=== PATIENT | female | born 1990 | race Two or more races ===

== ENCOUNTER 2017-07-06 08:48 | Emergency (ER) | payer MEDICAID ==
[2017-07-06 09:08] VITALS: TEMP 97.9; O2SAT 99
--- NOTE | 2017-07-06 09:10 | ED PDOC ---
HPI: General Adult Time Seen by Provider: 07/06/17 09:02 Chief Complaint (Nursing): Medical Clearance History Per: Patient Onset/Duration Of Symptoms: Hrs (1) Current Symptoms Are (Timing): Still Present Additional Complaint(s): Pt arrested by [place] police for walking across [facility]. Tried to hit police officers. States that she has "mental issues" but will not specify. Denies SI. Past Medical History Vital Signs: Last Vital Signs Temp 97.9 F 07/06/17 09:01 Pulse 84 07/06/17 09:01 Resp 20 07/06/17 09:01 BP 122/82 07/06/17 09:01 Pulse Ox 99 07/06/17 10:17 - Medical History PMH: No Chronic Diseases - Family History Family History: States: Unknown Family Hx - Home Medications Home Medications: Ambulatory Orders Medication Instructions Recorded No Known Home Med 07/06/17 - Allergies Allergies/Adverse Reactions: Allergies Allergy/AdvReac Type Severity Reaction Status Date / Time No Known Allergies Allergy Verified 07/06/17 09:01 Review of Systems ROS Statement: Except As Marked, All Systems Reviewed And Found Negative Physical Exam - Reviewed Nursing Documentation Reviewed: Yes Vital Signs Reviewed: Yes - Physical Exam Appears: Positive for: Non-toxic, No Acute Distress Head Exam: Positive for: ATRAUMATIC, NORMAL INSPECTION, NORMOCEPHALIC Skin: Positive for: Normal Color, Warm, DRY Eye Exam: Positive for: EOMI, Normal appearance, PERRL ENT: Positive for: Normal ENT Inspection Neck: Positive for: Normal, Painless ROM Cardiovascular/Chest: Positive for: Regular Rate, Rhythm Respiratory: Positive for: CNT, Normal Breath Sounds Gastrointestinal/Abdominal: Positive for: Normal Exam, Bowel Sounds, Soft Back: Positive for: Normal Inspection Extremity: Positive for: Normal ROM Neurologic/Psych: Positive for: Alert, Oriented - Laboratory Results Result Diagrams: 07/06/17 09:18 07/06/17 09:18 - ECG O2 Sat by Pulse Oximetry: 99 Medical Decision Making Medical Decision Making: Time: 10:13 Portable Chest X-Ray FINDINGS: LUNGS: No active pulmonary disease. PLEURA: No significant pleural effusion identified, no pneumothorax apparent. CARDIOVASCULAR: Normal. OSSEOUS STRUCTURES: No significant abnormalities. VISUALIZED UPPER ABDOMEN: Normal. OTHER FINDINGS: None. IMPRESSION: No active disease. Disposition - Clinical Impression Clinical Impression: Adjustment disorder - Patient ED Disposition Is Patient to be Admitted: No Counseled Patient/Family Regarding: Studies Performed, Diagnosis, Need For Followup - Disposition Referrals: LTAC, [facility] within [facility] [Outside] Disposition: Discharged/Transfer to Law Enforcement Disposition Time: 10:48 Condition: FAIR Additional Instructions: Medically and psychiatrically stable for incarceration Instructions: Adjustment Disorder Forms: [employer] ([place])
[2017-07-06 09:26] LABS: BASO % 0.4 % (0.0-2.0); EOS % 0.6 % (0.0-4.0); LYMPH # 1.8 K/uL (1.0-4.3); LYMPH % 23.1 % (20.0-40.0); MEAN CELL VOLUME 85.7 fl (81.0-99.0); MEAN CORPUSCULAR HEMOGLOBIN 28.4 pg (27.0-31.0); MEAN CORPUSCULAR HGB CONC 33.1 g/dL (33.0-37.0); MEAN PLATELET VOLUME 7.8 fl (7.2-11.7); MONO # 0.5 K/uL (0.0-0.8); MONO % 6.5 % (0.0-10.0); NEUT # 5.4 K/uL (1.8-7.0); NEUT % 69.4 % (50.0-75.0); RBC 4.57 Mil/uL (3.80-5.20); RED CELL DISTRIBUTION WIDTH 13.8 % (11.5-14.5); WHITE BLOOD COUNT 7.7 K/uL (4.8-10.8)
[2017-07-06 09:35] LABS: ALB/GLOB RATIO 1.2 (1.0-2.1); ALBUMIN 4.1 g/dL (3.5-5.0); ALT/SGPT 29 U/L (9-52); AST/SGOT 23 U/L (14-36); BLOOD UREA NITROGEN 15 mg/dl (7-17); CALCIUM 9.3 mg/dL (8.4-10.2); GFR AFRICAN-AMERICAN > 60; GFR NON-AFRICAN AMERICAN > 60
--- NOTE | 2017-07-06 10:14 | RAD ---
HISTORY: psych screen COMPARISON: No prior. FINDINGS: LUNGS: No active pulmonary disease. PLEURA: No significant pleural effusion identified, no pneumothorax apparent. CARDIOVASCULAR: Normal. OSSEOUS STRUCTURES: No significant abnormalities. VISUALIZED UPPER ABDOMEN: Normal. OTHER FINDINGS: None. IMPRESSION: No active disease.
[2017-07-06 11:34] LABS: BARBITURATES, UR NEGATIVE (NEGATIVE); BENZODIAZEPINES, UR NEGATIVE (NEGATIVE); OPIATES, UR NEGATIVE (NEGATIVE); PHENCYCLIDINE, UR NEGATIVE (NEGATIVE)
[2017-07-06 11:38] VITALS: BP 115/80; PULSE 75; RESP 16
--- NOTE | 2017-07-06 16:59 | CARD ---
APPROVED REPORT EKG Measurement Heart [id number] <Conclusion> Normal sinus rhythm Normal ECG
== END 2017-07-06 11:39 ==
LOC: H.ER 08:48
DX: F43.20 Adjustment disorder, unspecified (principal)
CPT/HCPCS: 71045; 80053; 81025; 85025; 93005; 99282; G0480